=== PATIENT | male | born 1990 | race Caucasian/White ===

== ENCOUNTER 2020-08-26 17:14 | Emergency (ER) | payer MEDICAID, SELFPAY ==
[2020-08-26 17:28] VITALS: BP 155/89; PULSE 96; RESP 18; TEMP 36.6; O2SAT 98; BMI 46.0
--- NOTE | 2020-08-26 18:08 | ED_ITS ---
HPI - Male Genitourinary General Chief complaint: Urogenital-Male Stated complaint: std check Time Seen by Provider: 08/26/20 18:08 History of Present Illness HPI Narrative: patient had sexual contact with a female who it turns out had herpes and he is concerned he may have contracted herpes but he has no rash no sores no pain no discharge no symptoms no dysuria Related Data Allergies Allergy/AdvReac Type Severity Reaction Status Date / Time No Known Allergies Allergy Unverified 11/22/19 16:07 Review of Systems Review of Systems: negatives are no fever no chills no genital sores or rashes no discharge no dysuria no frequency no other skin rashes PMFSH Past Medical History Source: nursing notes reviewed Medical History (Updated 08/27/20 @ 00:00 by Background Dayusra) No known health problems Social History Social History Advance Directives: No Advance Directives Information Provided: Yes Physical Exam Vital Signs: Vital Signs: Last Vital Signs Temp 97.9 F 08/26/20 17:28 Pulse 89 08/26/20 18:26 Resp 16 08/26/20 18:26 BP 154/78 H 08/26/20 18:26 Pulse Ox 99 08/26/20 18:26 Body Mass Index 46.0 general appearance no acute distress Head is normocephalic atraumatic Neck is supple Abdomen soft nontender Genital exam is normal with no rashes no vesicular lesions no ulcerations no discharge no testicular swelling Skin no other rash Course Course Course Narrative: patient at this time is asymptomatic and he is tested for GC chlamydia and advised to follow with clinic if any further testing needed for HI V and he will return if he develops any sores or lesions MDM - Male Genitourinary Lab Data Labs: Lab Results 08/26/20 Range/Units 18:41 Chlam trachomat DNA PCR NOT DETECTED (Not Detect.) N.gonorrhoeae DNA (PCR) NOT DETECTED (Not Detect.) Discharge Plan Discharge Clinical Impression: STD exposure Patient Disposition: Home, Self-Care Additional Instructions: There is no evidence of any active herpes infection now Always use a condom [facility] for [facility] testing and further evaluation We will call you with gonorrhea or chlamydia tests are positive Return any time any concerns, especially if he develops small pimples or bumps in the genital area which could be herpes Interventions: ED Discharge Assessment Last Done: 08/26/20 18:48 Discharge Date/Time: 08/26/20 18:49
[2020-08-26 18:26] VITALS: BP 154/78; PULSE 89; RESP 16; O2SAT 99
[2020-08-27 01:48] LABS: CT PCR NOT DETECTED (Not Detect.); NG PCR NOT DETECTED (Not Detect.)
== END 2020-08-26 18:49 | disposition home or self-care (01) ==
PROVIDERS: Physician Assistant Medical; Emergency Provider Emergency Medicine
DX: Z20.2 Contact with and (suspected) exposure to infections with a predominantly sexual mode of transmission (principal)
CPT/HCPCS: 87491; 87591; 99283; 99284